=== PATIENT | male | born 1945 | race Caucasian/White ===

== ENCOUNTER 2018-07-20 14:29 | Outpatient (CLI) | payer MEDICARE, BC | END 2018-07-20 14:30 | disposition home or self-care (01) | LOC: LAB.F 14:29 | PROVIDERS: ATTEND Internal Medicine | DX: E87.5 Hyperkalemia (principal) | CPT/HCPCS: 36415; 84132 ==

== ENCOUNTER 2018-09-10 08:00 | Outpatient (CLI) | payer MEDICARE, BC ==
[2018-09-10 18:58] LABS: HB2 TOTAL 16.9 g/dL; HEMOGLOBIN A1C 0.85 g/dL; HEMOGLOBIN A1C % 6.8 % (4.6-6.2)
== END 2018-09-10 23:59 | disposition home or self-care (01) ==
LOC: LAB.S 08:00
PROVIDERS: ATTEND Internal Medicine
DX: E11.9 Type 2 diabetes mellitus without complications (principal)
CPT/HCPCS: 36415; 83036

== ENCOUNTER 2020-10-03 08:00 | Outpatient (CLI) | payer MEDICARE, BC | END 2020-10-03 23:59 | disposition home or self-care (01) | LOC: LAB.N 08:00 | PROVIDERS: ATTEND Physician Assistant Medical | DX: B34.9 Viral infection, unspecified (principal); Z20.828 Contact with and (suspected) exposure to other viral communicable diseases ==

== ENCOUNTER 2023-06-18 16:49 | Outpatient (CLI) | payer MEDICARE, OTHER | END 2023-06-18 23:58 | disposition EMS.NT | LOC: EMS 16:49 | DX: R10.32 Left lower quadrant pain (principal) ==